=== PATIENT | male | born 1955 | race Caucasian/White ===

== ENCOUNTER 2018-09-23 08:14 | Inpatient (IN) ==
--- NOTE | 2018-09-23 08:34 | Spine - History & Physical Rep ---
Date of Encounter: 09/23/18 Time of Encounter: 08:32 Assessment and Plan (1) Cauda equina syndrome Status: Chronic (2) Lumbar stenosis Status: Chronic On exam afebrile vital signs stable. He has an antalgic gait pattern. He has some numbness in the buttocks and inguinal areas to palpation. He has a negative straight leg raise. He is able to fire all lower extremity motor groups but the quadriceps and dorsiflexors and plantar flexors are 4 on a motor scale. His hips move symmetrically. He has no clonus. Lungs are clear, cardiovascular is regular rate and rhythm, abdomen is obese, soft nontender. MRI of the lumbar spine dated 09/19/2018 with reveals severe stenosis at L4-5 with complete loss of CSF signal. There is moderate severe stenosis at L3-4 and L5-S1 as well. There are multilevel degenerative changes and disc desiccation. Impression: 1) evolving cauda equina syndrome 2) lumbar stenosis 3) lumbar radiculopathy 4) lower extremity weakness with gait intolerance Plan: Although he has had symptoms for a few weeks, the symptomsare gradually worsening and are consistent with evolving cauda equina. In this regard I find it reasonable to admit for observation and plan for decompression the form of a laminectomy L3-S1. Risk benefits possible competitions alternatives were discussed and the patient would like to proceed. Patient understands he must have medical optimization and clearance prior to surgical intervention. Qualifiers: Neurogenic claudication status: without neurogenic claudication Qualified Code(s): M48.061 - Spinal stenosis, lumbar region without neurogenic claudication (3) Lumbar radiculopathy Status: Chronic (4) Gait disturbance Status: Chronic History of Present Illness Chief complaint: leg pain, hard to walk HPI: Mr. Schulz is a 62 year old male with a history of back pain as well as bilateral lower extremity pain and weakness which is gradually progressed over the last several weeks. He was seen by Dr. Nolan Olson September 19 and at that time was starting to have bowel bladder symptoms intermittently. He is progressing the point where he can barely walk secondary to weakness in the lower extremities as well as radicular symptoms. He has been able to have bowel movements but has needed many motility agents to complete the process. He does have bladder control. He complains of numbness in his buttocks and perineal region. He was told if symptoms worsen to follow up immediately in the office any came this morning due to worsening concerns of his symptomatology. Past Med Surg Social Fam HX - Past Medical History Medical history: arthritis, COPD Psychiatric history: no psych history - Past Surgical History Additional surgical history: left knee repair. bicep repair. left small finger amp. - Social History Smoking Status: Current every day smoker Smokeless Tobacco Status: No Alcohol use: none Drug use: none Medications and Allergies Clindamycin [Cleocin] 300 mg PO Q8HR #6 capsule 08/18/15 [Rx] OxyCODONE Immed Rel [Roxicodone 5 MG] 5 mg PO Q6HR PRN #20 tablet 08/18/15 [Rx] Allergy/AdvReac Type Severity Reaction Status Date / Time Penicillins AdvReac Hives Verified 08/18/15 08:30 Results - Labs Labs: All other labs normal.
[2018-09-23] MEDS ORDERED: *HR* OxyCODONE Immed Rel 5 MG TABLET PO PRN (08:40)
[2018-09-23] MEDS ORDERED: Acetaminophen IV 500 MG/50 ML INFUS..BTL IVPB PRN (08:40)
[2018-09-23] MEDS ORDERED: Ringers Solution, Lactated 1,000 ML IVC SCH ×2 (08:45→15:00)
[2018-09-23 10:39] LABS: Basophils % 0.2 %; Eosinophils # 0.1 K/mcL (0.0-0.6); Hematocrit 45.7 % (37.5-50.1); Hemoglobin 15.4 g/dL (12.9-16.9); Immature Granulocytes % 0.3 % (0-4); Lymphocytes # 3.2 K/mcL (0.6-4.6); Lymphocytes % 24.7 %; Mean Corpuscular HGB Conc 33.7 g/dL (31.6-35.5); Mean Corpuscular Hemoglobin 30.7 pg (28.0-33.3); Mean Platelet Volume 8.9 fL (9.4-12.4); Monocytes # 0.9 K/mcL (0.0-1.3); Monocytes % 6.8 %; Neutrophils # 8.7 K/mcL (1.6-8.9); Platelet Count 424 K/mcL (140-400); Red Blood Count 5.02 M/mcL (4.19-5.50); Red Cell Distribution Width 12.3 % (11.5-14.5)
[2018-09-23 10:48] LABS: INR 1.2
[2018-09-23] MEDS ORDERED: Ipratropium/Albuterol Neb 3 ML IH PRN (10:48)
[2018-09-23 10:51] LABS: Activated Partial Thrombo Time 32.7 Seconds (26.0-36.0)
--- NOTE | 2018-09-23 10:52 | Internal Medicine Consult Note ---
Date of Encounter: 09/23/18 Time of Encounter: 10:52 - Assessment and plan (1) Cauda equina syndrome Current Visit: Yes Status: Chronic Assessment and plan: Patient with antalgic gait, perianal nmbness and being planned for surgery he has moderate cardio-pulmonary jack-op risk due to hx of smoking and EKG findings of Q waves in inferior leads CXR is unremarkable There is no chest pain or cardiac symptoms, no significant cardiac findings on exam, and no indications for further testing Recommend duonebs prn , may need BIPAP at bedside (2) COPD (chronic obstructive pulmonary disease) Current Visit: Yes Status: Chronic Assessment and plan: Patient is currently with few scattered expiratory wheezes, no shortness of breath, no cough DuoNeb nebs every 4 hours as needed no indications for steroid oral antibiotic at this time Qualifiers: COPD type: emphysema Emphysema type: unspecified Qualified Code(s): J43.9 - Emphysema, unspecified (3) Diabetes mellitus Current Visit: Yes Status: Chronic Assessment and plan: FS Q6H as patient is NPO check A1C with a.m labs Sliding scale insulin only for now Qualifiers: Diabetes mellitus type: type 2 Diabetes mellitus remote computer terminal operator insulin use: without senior living use Diabetes mellitus complication status: without complication Qualified Code(s): E11.9 - Type 2 diabetes mellitus without complications (4) Hypertension Current Visit: Yes Status: Chronic Assessment and plan: Continue home ARBS Qualifiers: Hypertension type: essential hypertension Qualified Code(s): I10 - Essential (primary) hypertension - Time Spent With Patient Total time spent is greater than 50% in coordination of care (as documented) at patient's floor/unit and/or counseling patient: Internal Medicine - CN: HPI - Data of Consult Patient: new to practice Consult date: 09/23/18 Requesting Physician: Nolan Lemus Jr MD - Consult Narrative Reason for consult: Jack-operative evaluation for clearance History of present illness: Mr. Schulz is a 62 year old male with tobacco abuse, diabetes mellitus on dietary control, and hypertension, lumbar stenosis The patient is admitted for cauda equina syndrome by orthopedic and spine surgery Medicine was consulted for jack-operative clearance for surgery. Patient is seen and evaluated with his at the bedside and reports a history of as above He reports no history of chest pain, he has shortness of breath on exertion, he denies leg or ankle edema, he denies periorbital edema, he denies palpitations, dizziness, or nausea, no diaphoresis, no orthopnea or PND. He is minimally active because of his chronic lumbar stenosis and radiculopathy. He smokes daily, he has had a right elbow and left knee surgeries in the past without any adverse effects of anesthesia. He denies any illicit drug use He has hives to penicillin use Past Med Surg Social Fam HX - Past Medical History Medical history: arthritis, COPD Psychiatric history: no psych history - Past Surgical History Additional surgical history: left knee repair. bicep repair. left small finger amp. - Social History Smoking Status: Current every day smoker Smokeless Tobacco Status: No Alcohol use: none Drug use: none - Constitutional Constitutional: no chills, no fever(s) - EENT Nose, mouth and throat: no bleeding gums - Cardiovascular Cardiovascular ROS IM: no chest pain, no claudication, no diaphoresis, no dyspnea, no edema, no lightheadedness, no palpitations - Respiratory Respiratory: no cough, no dyspnea - Gastrointestinal Gastrointestinal: no abdominal pain, no dysphagia, no nausea, no vomiting - Genitourinary Genitourinary ROS male: no dysuria - Musculoskeletal Musculoskeletal ROS IM: back pain, stiffness, tingling - Neurological Neurological ROS: abnormal gait, burning sensations - Psychiatric Psychiatric: no anxiety, no depression Internal Medicine - CN: Meds Clindamycin [Cleocin] 300 mg PO Q8HR #6 capsule 08/18/15 [Rx] OxyCODONE Immed Rel [Roxicodone 5 MG] 5 mg PO Q6HR PRN #20 tablet 08/18/15 [Rx] Allergy/AdvReac Type Severity Reaction Status Date / Time Penicillins AdvReac Hives Verified 08/18/15 08:30 Hospitalist - CN: Exam - Constitutional General appearance IM: Present: A&O X 3, pleasant, no acute distress, obese Exam: see below - Head Head exam: Present: atraumatic - Eye Eye exam: Present: EOMI, PERRL, conjuntiva pink, sclera anicteric - ENT ENT exam: Present: mucous membranes moist - Neck Neck exam general surgery: Present: normal inspection - Respiratory Respiratory exam: Present: CTAB - Cardiovascular Cardiovascular exam IM: Present: RRR, +S1, +S2. Absent: gallop, JVD, systolic murmur - GI/Abdominal GI/Abdominal exam IM: Present: normal bowel sounds, soft, no peritoneal signs. Absent: guarding, tenderness - Extremities Exam Extremities exam IM: Present: warm, radial pulses palpable and symmetrical. Absent: pedal edema Internal Medicine - CN: Reslt - Labs CBC & Chem 7: 09/23/18 10:23 09/23/18 10:23 Labs: Short CBC 09/23/18 Range/Units 10:23 WBC 13.0 H (4.3-11.1) K/mcL Hgb 15.4 (12.9-16.9) g/dL Hct 45.7 (37.5-50.1) % Plt Count 424 H (140-400) K/mcL Neutrophils # 8.7 (1.6-8.9) K/mcL - ABG Interpretation ABG results: PT/INR, D-dimer PT 13.0 Seconds (9.4-12.1) H 09/23/18 10:23 - Impressions Impressions Chest X-Ray 09/23/18 08:51 IMPRESSION: Stable unremarkable exam. No evidence for acute cardiopulmonary process. D/ / Yang Gillette MD / Yang Gillette MD Interpreting Provider: Yang Gillette MD Consult Discharge Plan - Plan Referrals: NONE,PCP [Primary Care Provider] -
[2018-09-23 11:09] LABS: BUN/Creatinine Ratio 14 (6-26); Blood Urea Nitrogen 12 mg/dL (8-23); Calcium 9.4 mg/dL (8.6-10.3); Carbon Dioxide 29 mEq/L (23-29); Chloride 99 mEq/L (98-107); Glucose 130 mg/dL (70-105); Osmolality,Calculated 286 (280-300); Potassium 3.8 mEq/L (3.5-5.1); Sodium 137 mEq/L (136-145); eGFR For Non-African Americans > 60 (> 60)
[2018-09-23] MEDS ORDERED: *HR* Dextrose 50 % in Water (Syg) 50 ML SYRINGE IVP PRN (11:20)
[2018-09-23] MEDS ORDERED: D5% in Water 1,000 ML IVC PRN (11:20)
[2018-09-23] MEDS ORDERED: Dextrose Gel 15 GM/37.5 ML TUBE PO PRN ×2 (11:20)
[2018-09-23] MEDS ORDERED: Clindamycin 900 MG/50 ML 900 MG/50 ML IV.SOLN IVPB ONE ×2 (11:42→14:10)
[2018-09-23] MEDS ORDERED: Acetaminophen IV 1,000 MG/100 ML INFUS..BTL IVPB PRN (11:48)
[2018-09-23] MEDS ORDERED: Insulin LISPRO 300 UNITS/3 ML VIAL SQ SCH (12:00)
--- NOTE | 2018-09-23 13:40 | Anesthesia Evaluation PreOp ---
Date of Encounter: 09/23/18 Time of Encounter: 13:37 - Past History Planned Operation: Laminectomy L3-S1 Cardiac History: HTN Pulmonary History: Smoker, COPD SHOW HOST History: Denies Any Significant HX Other Medical History: Diabetes Type II, Other (Obese) Anesthesia History: No Prior Anesthetic Complications, Past Anesthesia (Left Knee scope, bicep repair. left small finger amp.) Alcohol Use: none Drug use: none Medications and Allergies Clindamycin [Cleocin] 300 mg PO Q8HR #6 capsule 08/18/15 [Rx] OxyCODONE Immed Rel [Roxicodone 5 MG] 5 mg PO Q6HR PRN #20 tablet 08/18/15 [Rx] Allergy/AdvReac Type Severity Reaction Status Date / Time Penicillins AdvReac Hives Verified 08/18/15 08:30 - Meds/Allergy Pre-op Review Medications Reviewed: Yes Allergies Reviewed: Yes Beta Blockers on Current Med List: No Anesthesia Results - Labs 09/23/18 10:23 09/23/18 10:23 - Imaging EKG: report reviewed (SR) Anesthesia Exam Vital Signs/O2 Sat, Most Current Temp Pulse Resp BP Pulse Ox 98.3 F 73 18 131/87 95 09/23/18 11:44 09/23/18 11:44 09/23/18 11:44 09/23/18 11:44 09/23/18 11:44 Blood glucose: 118 NPO (# of Hours): > 8 hrs Pain Scale: 0 Pain Scale Used: Numeric (1 - 10) - HEENT Pupil (Motor): Pupils equal, EOMI Mallampati: II Teeth: Normal Oral Opening: Greater than 3 - SHOW HOST LOC: Oriented SHOW HOST Motor: Normal RUE, Normal LUE, Normal RLE, Normal LLE, Normal Face SHOW HOST Sensory: Normal: RUE, LUE, RLE, LLE, Face - Cardiac Rhythm: Regular Murmur: None JVD: No Carotid Bruit: No - Pulmonary Breath Sounds: bilateral Clear Respiratory Effort: Symmetrical Anesthesia Assess/Plan ASA Score: 3 Level of consciousness: Cooperative Anesthetic Plan: General Autologous Blood: Yes Monitoring Plan: Standard Monitors Recovery Plan: PACU
[2018-09-23] MEDS ORDERED: Bacitracin 50,000 UNIT, Polymyxin B Sulfate 500,000 UNIT, Sodium Chloride IRRigation 1,... IR ONE (14:15)
[2018-09-23] MEDS ORDERED: *HR* Promethazine 25 MG/ML VIAL IVP PRN (14:56)
[2018-09-23] MEDS ORDERED: *HR* Meperidine 25 MG/ML SYRINGE IVP PRN (14:56)
[2018-09-23] MEDS ORDERED: Albuterol 2.5 MG/3 ML NEBULIZER IH ONE (14:56)
[2018-09-23] MEDS ORDERED: *HR* OxyCODONE/APAP 5/325 TABLET PO PRN (14:56)
[2018-09-23] MEDS ORDERED: Ondansetron 4 MG/2 ML VIAL IVP ONE (14:56)
[2018-09-23] MEDS ORDERED: Naloxone 0.4 MG/ML INJ IVP PRN ×2 (14:56→18:20)
[2018-09-23] MEDS ORDERED: *HR* HYDROmorphone (PF) 1 MG/ML SYRINGE IVP PRN (14:56)
[2018-09-23] MEDS ORDERED: EPHEDrine 50 MG/ML VIAL ONE (15:01)
[2018-09-23] MEDS ORDERED: *HR* Propofol 200 MG/20 ML VIAL IVP ONE (15:01)
[2018-09-23] MEDS ORDERED: *HR* Midazolam HCl 2 MG/2 ML VIAL ONE (15:01)
[2018-09-23] MEDS ORDERED: Lidocaine -MPF 4% 5 ML AMPUL ONE (15:01)
[2018-09-23] MEDS ORDERED: *HR* PHENYLEPHRINE 1,000 MCG/10 ML SYRINGE IVP ONE (15:01)
[2018-09-23] MEDS ORDERED: Lidocaine -MPF 2% 2 ML VIAL ONE (15:01)
[2018-09-23] MEDS ORDERED: *HR* Succinylcholine 200 MG/10 ML VIAL IVP ONE (15:01)
[2018-09-23] MEDS ORDERED: *HR* FentaNYL (PF) 100 MCG/2 ML VIAL ONE ×2 (15:01→16:11)
[2018-09-23] MEDS ORDERED: *HR* Remifentanil 1 MG VIAL IVP ONE (15:01)
[2018-09-23] MEDS ORDERED: *HR* Phenylephrine 10 MG/ML VIAL ONE (15:01)
[2018-09-23] MEDS ORDERED: Dexamethasone 4 MG/ML VIAL ONE (15:07)
[2018-09-23] MEDS ORDERED: Ondansetron 4 MG/2 ML VIAL ONE (15:07)
--- NOTE | 2018-09-23 16:46 | Orthopedic Operative Note ---
Date of procedure: 09/23/18 Pre-op diagnosis: Evolving cauda equina syndrome, lumbar stenosis, lumbar radiculopathy Post-op diagnosis: same Operation/Findings: Laminectomy L3-S1: The patient was brought to the operative theater where he underwent general endotracheal anesthesia. He was given antibiotics prior to the start of the procedure. Compression boots and stockings were used for deep vein thrombosis prophylaxis. The patient was placed prone on a Chad table. The back was prepped and draped in the usual sterile fashion. An incision was marked and centered over the L3-S1 interspaces in the midline. We used Bovie cautery to make an incision and then this incision was deepened through the lumbar fascia. Bovie cautery and Anaya elevators were used to reflect the paraspinal musculature to the lateral extent of theL3-4, L4-5, and L5-S1 facet joints bilaterally. Krys clamps were placed over the spinous processes of L4 and L5 and an intraoperative lateral fluorograph was obtained. A discusssion was held between the radiologist and surgeon who both confirmed we were at the correct operative level. We then removed the supraspinous and interspinous ligaments between L5 and S1 and subsequently removed the ligamentum flavum from its origin on the distal undersurface of the L5 lamina. The ligamentum flavum was noted to be quite hypertrophied as well as the facets were hypertrophied. This required performing a laminectomy of L5 with partial medial facetectomies including undercutting of the L5-S1 facets to decompress the lateral recesses. removed proximally to the L4-5 level anterspinous ligaments, hypertrophied ligamentum flavum, and did partial medial facetectomies. We then moved proximally to the L3-4 level en did a similar decompression in standard fashion including removal of the aforementioned ligaments, undercutting the L3-4 facets, and doing partial medial facetectomies at this L3-4 level. After the decompression was complete we checked the foramen and the traversing nerve roots at L3-4, L4-5, and L5-S1and they were found to be free and patent. we documented the extent of the decompr by using curved ball-tipped probes and taking a lateral fluorograph. We copiously irrigated the wound and then closed the wound in layers with 1 Vicryl for the fascia, 2-0 Vicryl for the subcutaneous tissue, and Dermabond was used for skin closure. Sterile dressings were placed over the wound, the patient was turned supine in a hospital bed, and was extubated in the operative theater. All sponge needles and instrument counts were correct at the end of the procedure. The patient tolerated the procedure well without complications. Anesthesia: GETA Surgeon: Nolan Lemus Jr Was there an medical claims assistant present: No Estimated blood loss (cc): 50 Specimen: none Condition: stable Disposition: PACU
--- NOTE | 2018-09-23 17:51 | Anesthesia Evaluation Post Op ---
Date of Encounter: 09/23/18 Time of Encounter: 17:50 - Vital Signs Vital Signs: Last Vital Signs Temp 98.2 F 09/23/18 17:46 Pulse 78 09/23/18 17:46 Resp 18 09/23/18 17:46 BP 103/68 09/23/18 17:46 Pulse Ox 94 09/23/18 17:46 - Lungs Lungs: Clear Ascult./Percussion - Airway Airway: Non-obstructed - Cardiovascular Regular Rate - Mental Status Mental Status: Alert & Oriented, Answers Appropriately - Pain Pain Scale: 3 - Nausea Vomiting Nausea Vomiting: Not Present - Hydration Hydration: NPO - Discharge PostOp Status: Transfer Patient to floor
[2018-09-23] MEDS ORDERED: Acetaminophen 325 MG TABLET PO PRN (18:20)
[2018-09-23] MEDS ORDERED: Ondansetron 4 MG/2 ML VIAL IVP PRN (18:20)
[2018-09-23] MEDS: *HR* OxyCODONE Immed Rel 5 MG TABLET PO PRN (18:56)
[2018-09-23] MEDS ORDERED: Clindamycin 900 MG/50 ML 900 MG/50 ML IV.SOLN IVPB SCH (22:00)
[2018-09-23] MEDS: *HR* HYDROcodone/Acet 5/325 mg TABLET PO PRN (22:42)
[2018-09-23] MEDS: Clindamycin 900 MG/50 ML 900 MG/50 ML IV.SOLN IVPB SCH (22:43)
[2018-09-24] MEDS: *HR* OxyCODONE Immed Rel 5 MG TABLET PO PRN ×2 (00:16→13:21)
[2018-09-24] MEDS: *HR* HYDROcodone/Acet 5/325 mg TABLET PO PRN ×2 (04:15→10:17)
[2018-09-24] MEDS: Clindamycin 900 MG/50 ML 900 MG/50 ML IV.SOLN IVPB SCH (05:59)
--- NOTE | 2018-09-24 10:18 | Discharge Summary ---
- NOTES TO OUTPATIENT PROVIDER Notes to Outpatient Provider: follow-up in spine Center in 2 weeks Date of Encounter: 09/24/18 Time of Encounter: 10:16 - Discharge Diagnosis (1) Cauda equina syndrome Priority: Primary Status: Chronic (2) Lumbar stenosis Priority: Secondary Status: Chronic Qualifiers: Neurogenic claudication status: without neurogenic claudication Qualified Code(s): M48.061 - Spinal stenosis, lumbar region without neurogenic claudication (3) Lumbar radiculopathy Priority: Secondary Status: Chronic (4) Gait disturbance Priority: Secondary Status: Chronic - Hospital Course Hospital course: Mr. Schulz is a 62 year old male The patient had an uneventful postoperative c ourse. Progressed from intravenous analgesic needs to oral analgesic needs only. Remained neurovascularly intact and mobilized satisfactorily. All intraoperative and/or postoperative radiographic studies were satisfactory. Patient is discharged with plan for rehabilitation and follow-up in 2 weeks post discharge on analgesic medication and patient's home medications. - Time Spent with Patient Total time spent providing and/or coordinating discharge services: - Discharge Medications Prescriptions: OxyCODONE Immed Rel [Roxicodone 5 MG] 5 mg PO Q4HR PRN 7 Days #30 tablet PRN Reason: Severe Pain Home Medications: Clindamycin [Cleocin] 300 mg PO Q8HR #6 capsule 08/18/15 [Rx] OxyCODONE Immed Rel [Roxicodone 5 MG] 5 mg PO Q6HR PRN #20 tablet 08/18/15 [Rx] OxyCODONE Immed Rel [Roxicodone 5 MG] 5 mg PO Q4HR PRN 7 Days #30 tablet 09/24/18 [Rx] Allergies/Adverse Reactions: Allergy/AdvReac Type Severity Reaction Status Date / Time Penicillins AdvReac Hives Verified 08/18/15 08:30 Date of admission: 09/23/18 10:13 Primary care physician: PCP NONE Consults: 09/23/18 18:20 Consult to Nurse Navigator [CONS] Routine Comment: spine navigator Consult to Occupational Therapy [CONS] Routine Comment: Evaluate, develop and implement POC Reason for Consult: Postoperative rehabilitation Does patient have active BEDREST order?: No Is patient medically & hemodynamically stable?: Yes Patient assessed for mobility or mobilized this visit?: No Consult to Physical Therapy [CONS] Routine Comment: Evaluate, develop and implement POC Reason for Consult: Postoperative rehabilitation Does patient have active BEDREST order?: No Is patient medically & hemodynamically stable?: Yes Patient assessed for mobility or mobilized this visit?: No Labs on day of discharge: Labs from last 24 hours 09/23/18 09/23/18 09/23/18 12:45 11:48 10:23 WBC RBC Hgb Hct MCV MCH MCHC RDW Plt Count MPV Immature Gran % Seg Neutrophils % Lymphocytes % Monocytes % Eosinophils % Basophils % Neutrophils # Lymphocytes # Monocytes # Eosinophils # Basophils # PT 13.0 H INR 1.2 APTT 32.7 Sodium Potassium Chloride Carbon Dioxide BUN Creatinine Est GFR ( Amer) Est GFR (Non-Af Amer) BUN/Creatinine Ratio Glucose POC Glucose 118 H Calculated Osmolality Calcium Nasal Screen MRSA (PCR) Negative 09/23/18 09/23/18 10:23 10:23 WBC 13.0 H RBC 5.02 Hgb 15.4 Hct 45.7 MCV 91.0 MCH 30.7 MCHC 33.7 RDW 12.3 Plt Count 424 H MPV 8.9 L Immature Gran % 0.3 Seg Neutrophils % 67.0 Lymphocytes % 24.7 Monocytes % 6.8 Eosinophils % 1.0 Basophils % 0.2 Neutrophils # 8.7 Lymphocytes # 3.2 Monocytes # 0.9 Eosinophils # 0.1 Basophils # 0.0 PT INR APTT Sodium 137 Potassium 3.8 Chloride 99 Carbon Dioxide 29 BUN 12 Creatinine 0.87 Est GFR ( Amer) > 60 Est GFR (Non-Af Amer) > 60 BUN/Creatinine Ratio 14 Glucose 130 H POC Glucose Calculated Osmolality 286 Calcium 9.4 Nasal Screen MRSA (PCR) - Impressions ITS Impressions Chest X-Ray 09/23/18 08:51 IMPRESSION: Stable unremarkable exam. No evidence for acute cardiopulmonary process. D/ / Yang Gillette MD / Yang Gillette MD Interpreting Provider: Yang Gillette MD Fluoroscopy 09/23/18 14:42 IMPRESSION: Fluoroscopy was utilized for the purposes of L3 through S1 laminectomy D/ / Jose Crow MD / Jose Crow MD Interpreting Provider: Jose Crow MD Lumbar Spine X-Ray 09/23/18 14:42 IMPRESSION: Fluoroscopy was utilized for the purposes of L3 through S1 laminectomy D/ / Jose Crow MD / Jose Crow MD Interpreting Provider: Jose Crow MD - Patient Status Disposition: Home, Self-Care Condition: Good Functional capacity at discharge: uses cane/walker Overall status at discharge: patient is progressing back to baseline - Discharge Instructions Follow Up With: NONE,PCP [Primary Care Provider] - - Diet and Activity Activity: as per physical therapy Diet: advance to your usual diet
--- NOTE | 2018-09-24 10:58 | Internal Med Progress Note ---
Hospitalist Progress Note - Encounter Date of Encounter: 09/24/18 Time of Encounter: 14:15 - Exam Vitals: Temp Pulse Resp BP Pulse Ox 98.1 F 77 16 121/72 93 09/24/18 07:09 09/24/18 07:09 09/24/18 07:09 09/24/18 07:09 09/24/18 07:09 Exam: Gen - Awake, alert, oriented x 3, no acute distress HEENT - NCAT, PERRLA, EOMI, hearing grossly intact, oropharynx benign CV - RRR, normal S1 and S2, no M/R/G, no BLE edema Resp - Normal WOB, CTAB, no W/R/R GI - Soft, NT/ND, no masses, normal bowel sounds, Skin - Warm, dry, no rashes/lesions/ulcers Psych - Normal mood and affect, no depression or anxiety - Assessment and Plan (1) Cauda equina syndrome Status: Chronic Assessment and Plan: s/p L3- S1 laminectomy. Stable. Tolerated procedure well (2) COPD (chronic obstructive pulmonary disease) Status: Chronic Assessment and Plan: Patient is currently with few scattered expiratory wheezes, no shortness of breath, no cough DuoNeb nebs every 4 hours as needed no indications for steroid oral antibiotic at this time (3) Diabetes mellitus Status: Chronic Assessment and Plan: Sliding scale insulin and restart diet (4) Hypertension Status: Chronic Assessment and Plan: Continue home ARBS - Time Spent with Patient Total time spent is greater than 50% in coordination of care (as documented) at patient's floor/unit and/or counseling patient: Internal Medicine: Result - Labs CBC & Chem 7: 09/23/18 10:23 09/23/18 10:23 Labs: BMP 09/23/18 10:23 Sodium 137 Potassium 3.8 Chloride 99 Carbon Dioxide 29 BUN 12 Creatinine 0.87 Glucose 130 H Calcium 9.4 - ABG Interpretation ABG results: PT/INR, D-dimer PT 13.0 Seconds (9.4-12.1) H 09/23/18 10:23 - Impressions Impressions Fluoroscopy 09/23/18 14:42 IMPRESSION: Fluoroscopy was utilized for the purposes of L3 through S1 laminectomy D/ / Jose Crow MD / Jose Crow MD Interpreting Provider: Jose Crow MD Lumbar Spine X-Ray 09/23/18 14:42 IMPRESSION: Fluoroscopy was utilized for the purposes of L3 through S1 laminectomy D/ / Jose Crow MD / Jose Crow MD Interpreting Provider: Jose Crow MD Consult Discharge Plan - Plan Additional Instructions: Discharge Instructions: Lumbar Please call [facility] ([phone]), your Primary Care Physician, or report to the ER if you have any of the following symptoms: Fever greater that 101.5, increased pain/redness/drainage/odor for your incision site or any other concerning symptoms. ACTIVITY * May Shower * No Tub Baths * No lifting greater than 10 pounds * No Smoking * No Swimming * No off Ground Activities (Running, Climbing, Ladders, Horseback Riding) * No Driving * Wear Back Brace when up walking if lumbar fusion done * Incentive Spirometer 10 times an hour MEDICATIONS: Upon discharge resume your home medications. Take all the medications as prescribed. Take a stool softener if taking narcotic pain medications. Stool softeners are only effective if you drink enough fluids. Drink 6-8 glass of water or fluids a day, unless this is not allowed for another health problem. Despite using stool softeners, if you haven't had a bowel movement in 3 days, please switch to a gentle laxative. Gentle laxatives are sold over the counter. You should have a bowel movement within 24 hours, if not call the office. You will be discharged from the hospital with a prescription for pain medication. You are encouraged to decrease the use of narcotic pain medication as tolerated. Should you require a refill, please call the office. It is best to call 48-72 hours in advance of needing a prescription refill so you don't run out of medication. WOUND CARE: Remove Dressing Tomorrow. Leave incision open to air. Pat dry when you get out of the shower. FOLLOW-UP: Please follow up with your surgeon in the orthopedic clinic in 2 weeks from the day of surgery. References: [employer] (www.[email or web address].org) Referrals: NONE,PCP [Primary Care Provider] - Prescriptions: OxyCODONE Immed Rel [Roxicodone 5 MG] 5 mg PO Q4HR PRN 7 Days #30 tablet PRN Reason: Severe Pain (2) COPD (chronic obstructive pulmonary disease) Qualifiers: COPD type: emphysema Emphysema type: unspecified Qualified Code(s): J43.9 - Emphysema, unspecified (3) Diabetes mellitus Qualifiers: Diabetes mellitus type: type 2 Diabetes mellitus termination clerk insulin use: without mcc use Diabetes mellitus complication status: without complication Qualified Code(s): E11.9 - Type 2 diabetes mellitus without complications (4) Hypertension Qualifiers: Hypertension type: essential hypertension Qualified Code(s): I10 - Essential (primary) hypertension
[2018-09-24 11:38] VITALS: BP 122/78
--- NOTE | 2018-09-24 13:04 | Electrocardiograph Report ---
[address] [address] Test Date: 2018-09-22 Pat Name: Nolan Schulz Department: 114 Room: [facility] Gender: M Automatic Chief: JJG : 1955 Requested By: Nolan Lemus Order Number: [id number] Reading MD: Maria Luz Nguyen Measurements Intervals [place] Rate: 73 P: 43 KS: 166 QRS: 104 QRSD: 102 T: 56 QT: 355 QTc: 380 Interpretive Statements SINUS RHYTHM MARKED RIGHT AXIS DEVIATION Electronically Signed On 09-24-2018 13:02:46 EST by Maria Luz Nguyen
== END 2018-09-24 14:25 | disposition home or self-care (01) | DRG 516 ==
LOC: 3NENU 10:13
PROVIDERS: ADMIT Orthopaedic Surgery Orthopaedic Surgery of the Spine; ATTEND Orthopaedic Surgery Orthopaedic Surgery of the Spine